=== PATIENT | female | born 1965 | race Caucasian/White ===

== ENCOUNTER 2019-03-28 13:51 | Emergency (ER) | payer OTHER ==
[~2019-03-28] VITALS: Ht 152.4 cm; Wt 58.5 kg
[2019-03-28 13:53] VITALS: Ht 152.4 cm; Wt 58.5 kg
[2019-03-28 16:20] LABS: BASOPHIL % 0.6 % (0-2); PLATELET COUNT 242 x10^3mcL (130-400); RED CELL DISTRIBUTION WIDTH 13.9 % (11.5-14.5)
[2019-03-28 16:33] LABS: CALCIUM 8.7 mg/dL (8.5-10.1); CHLORIDE SERUM 107 mmol/L (98-107); CREATININE SERUM 0.8 mg/dL (0.6-1.0); GFR1 > 60 mL/min; GLUCOSE SERUM 105 mg/dL (74-106); POTASSIUM SERUM 3.4 mmol/L (3.5-5.1); SODIUM SERUM 145 mmol/L (136-145)
[2019-03-28 19:45] VITALS: BP 130/87
== END 2019-03-28 19:45 | disposition home or self-care (01) ==
LOC: ED 13:51
PROVIDERS: Emergency Medicine
DX: S22.41XA Multiple fractures of ribs, right side, initial encounter for closed fracture (principal); I10 Essential (primary) hypertension; W01.0XXA Fall on same level from slipping, tripping and stumbling without subsequent striking against object, initial encounter; Y93.89 Activity, other specified; Y92.89 Other specified places as the place of occurrence of the external cause; Y99.8 Other external cause status
CPT/HCPCS: J1885; J3010; Q9967

== ENCOUNTER 2019-04-08 16:08 | Emergency (ER) | payer OTHER ==
[~2019-04-08] VITALS: Ht 152.4 cm; Wt 61.2 kg
[2019-04-08 16:25] VITALS: Ht 152.4 cm; Wt 61.2 kg
[2019-04-08 18:53] VITALS: BP 132/71
== END 2019-04-08 18:53 | disposition home or self-care (01) ==
LOC: ED 16:08
DX: S22.31XD Fracture of one rib, right side, subsequent encounter for fracture with routine healing (principal); I10 Essential (primary) hypertension; X58.XXXD Exposure to other specified factors, subsequent encounter